=== PATIENT | female | born 1940 | race Caucasian/White ===

== ENCOUNTER → 2016-02-20 | Day surgery (SDC) | payer MEDICARE, OTHER ==
[~2016-02-20] MED LIST: APREPITANT 40 MG CAP ONE; BUPIVACAINE/EPINEPHRINE 0.5% PF 30 ML VIAL ONE; IOHEXOL 180 MG/ML 20 ML VIAL (for RAD DIAG) ONE; KETOROLAC TROMETHAMINE 30 MG/ML (IVP) VIAL IV PUSH ONE; LACTATED RINGER'S 1000 ML INJ 1,000 ML ONE; LIDOCAINE 1%/EPINEPHrine 1:100,000 SOLN 20 ML VIAL ONE; MIDAZOLAM HCL 2 MG/2 ML VIAL ONE; PROPOFOL 200 MG/20 ML AMP IV ONE; ceFAZolin 2 GM PREMIX 50 ML ONE
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
== END | disposition home or self-care (01) ==
LOC: ESDC 10:46
PROVIDERS: ATTEND Orthopaedic Surgery Orthopaedic Surgery of the Spine
DX: S32.020A Wedge compression fracture of second lumbar vertebra, initial encounter for closed fracture (principal)
CPT/HCPCS: 01936; 22514; 72100; J0690; J1885; J2250; J3010; J7120; J8501; Q9965